=== PATIENT | male | born 1940 | race Caucasian/White ===

== ENCOUNTER 2020-07-02 18:34 | Inpatient (IN) | payer MEDICARE, OTHER ==
[~2020-07-02] VITALS: Ht 177.8 cm; Wt 83.2 kg
[2020-07-02 21:57] LABS: HEMOGLOBIN 14.3 gm/dl (14.0-17.5); RED BLOOD COUNT 4.67 M/UL (4.20-5.50); WHITE BLOOD COUNT 9.8 K/UL (4.5-11.0)
[2020-07-04] MEDS ORDERED: IPRATROPIUM BRO15 ML (09:25)
[2020-07-04] MEDS ORDERED: RESTORIL 30 MG30 MG PO (09:25)
[2020-07-04] MEDS ORDERED: NITROSTAT0.4 MG SL (09:25)
[2020-07-04] MEDS ORDERED: COREG12.5 MG PO (09:26)
[2020-07-04] MEDS ORDERED: RANEXA500 MG PO (09:26)
[2020-07-04] MEDS ORDERED: LINZESS72 MCG PO (09:26)
[2020-07-04] MEDS ORDERED: HYDRALAZINE HCL50 MG PO (09:27)
[2020-07-04] MEDS ORDERED: ALLEGRA ALLERG180 MG PO (09:27)
[2020-07-04] MEDS ORDERED: DRISDOL1250 MCG PO (09:27)
[2020-07-04] MEDS ORDERED: ASPIRIN EC81 MG PO (09:28)
[2020-07-04] MEDS ORDERED: OMEPRAZOLE20 MG PO (09:28)
[2020-07-04] MEDS ORDERED: SYNTHROID88 MCG PO (09:28)
[2020-07-04] MEDS ORDERED: ISOSORBIDE MON120 MG PO (09:28)
[2020-07-04] MEDS ORDERED: LIPITOR40 MG PO (09:29)
[2020-07-04] MEDS ORDERED: LEVEMIR FL100 UNIT/1 SC (09:29)
[2020-07-05 04:27] LABS: HEMOGLOBIN 14.2 gm/dl (14.0-17.5); RED BLOOD COUNT 4.68 M/UL (4.20-5.50); WHITE BLOOD COUNT 8.5 K/UL (4.5-11.0)
[2020-07-06 02:58] LABS: HEMOGLOBIN 12.4 gm/dl (14.0-17.5); WHITE BLOOD COUNT 7.1 K/UL (4.5-11.0)
[2020-07-06 03:08] LABS: RED BLOOD COUNT 4.12 M/UL (4.20-5.50)
[2020-07-07] MEDS ORDERED: ATORVASTATIN CA20 MG PO (10:48)
[2020-07-07] MEDS ORDERED: LEVEMIR FL100 UNIT/1 SC (10:48)
== END 2020-07-07 14:17 | disposition home or self-care (01) | DRG 280 ==
LOC: ER1 18:34 → CDU 07-03 01:05 → PROG CARE 07-05 07:57
PROVIDERS: Family Medicine; Hospitalist; Internal Medicine; ADMIT Internal Medicine
PROC: B24BZZZ Ultrasonography of Heart with Aorta (ICD-10-PCS; 2020-07-03)
PROC: B211YZZ Fluoroscopy of Multiple Coronary Arteries using Other Contrast (ICD-10-PCS; principal; 2020-07-05)
PROC: B218YZZ Fluoroscopy of Left Internal Mammary Bypass Graft using Other Contrast (ICD-10-PCS; 2020-07-05)
PROC: 4A033BC Measurement of Arterial Pressure, Coronary, Percutaneous Approach (ICD-10-PCS; 2020-07-05)
PROC: 4A023N7 Measurement of Cardiac Sampling and Pressure, Left Heart, Percutaneous Approach (ICD-10-PCS; 2020-07-05)
DX: T82.855A Stenosis of coronary artery stent, initial encounter (principal); I21.4 Non-ST elevation (NSTEMI) myocardial infarction; I50.21 Acute systolic (congestive) heart failure; N17.9 Acute kidney failure, unspecified; Z20.822 Contact with and (suspected) exposure to COVID-19; J90 Pleural effusion, not elsewhere classified; I13.0 Hypertensive heart and chronic kidney disease with heart failure and stage 1 through stage 4 chronic kidney disease, or unspecified chronic kidney disease; I25.10 Atherosclerotic heart disease of native coronary artery without angina pectoris; I44.7 Left bundle-branch block, unspecified; J44.9 Chronic obstructive pulmonary disease, unspecified; E11.22 Type 2 diabetes mellitus with diabetic chronic kidney disease; N18.9 Chronic kidney disease, unspecified; G47.33 Obstructive sleep apnea (adult) (pediatric); E03.9 Hypothyroidism, unspecified; R55 Syncope and collapse; M19.90 Unspecified osteoarthritis, unspecified site; Z88.0 Allergy status to penicillin; Z83.3 Family history of diabetes mellitus; Z82.49 Family history of ischemic heart disease and other diseases of the circulatory system; Z86.16 Personal history of COVID-19; Z95.5 Presence of coronary angioplasty implant and graft; Z79.82 Long term (current) use of aspirin; Z79.890 Hormone replacement therapy; Z95.1 Presence of aortocoronary bypass graft; Z79.4 Long term (current) use of insulin; Z79.899 Other long term (current) drug therapy
CPT/HCPCS: ECHO; 36415; 36600; 71045; 80048; 80053; 82550; 82553; 82803; 82962; 83735; 83874; 83880; 84484; 85025; 85027; 85730; 93005; 93306; 96374; 96375; 96376; 99152; 99153; 99285; C1769; J1644; J1940; J2250; J2405; J2550; J3010; J7030; J7040; Q9965; U0002

== ENCOUNTER 2020-12-13 13:42 | Emergency (ER) | payer MEDICARE, OTHER ==
[~2020-12-13 13:42] MED LIST: ALLEGRA ALLERG180 MG PO; ASPIRIN EC81 MG PO; ATORVASTATIN CA20 MG PO; COREG12.5 MG PO; DRISDOL1250 MCG PO; HYDRALAZINE HCL50 MG PO; IPRATROPIUM BRO15 ML; ISOSORBIDE MON120 MG PO; LEVEMIR FL100 UNIT/1 SC; LINZESS72 MCG PO; LIPITOR40 MG PO; NITROSTAT0.4 MG SL; OMEPRAZOLE20 MG PO; RANEXA500 MG PO; RESTORIL 30 MG30 MG PO; SYNTHROID88 MCG PO
[2020-12-13 13:53] LABS: RED BLOOD COUNT 4.48 M/UL (4.20-5.50); WHITE BLOOD COUNT 8.3 K/UL (4.5-11.0)
[2020-12-13 14:25] LABS: BUN/CREATININE RATIO 13 (0-10)
== END 2020-12-13 17:36 | disposition short-term general hospital (02) ==
LOC: ER1 13:42
PROVIDERS: Student in an Organized Health Care Education/Training Program
DX: S06.5X0A Traumatic subdural hemorrhage without loss of consciousness, initial encounter (principal); S06.6X0A Traumatic subarachnoid hemorrhage without loss of consciousness, initial encounter; S01.01XA Laceration without foreign body of scalp, initial encounter; R41.82 Altered mental status, unspecified; Z20.822 Contact with and (suspected) exposure to COVID-19; W19.XXXA Unspecified fall, initial encounter
CPT/HCPCS: 0240U; 36430; 70450; 71045; 72125; 72170; 80053; 80307; 81001; 83605; 85025; 85610; 85730; 86850; 86900; 86901; 93005; 96374; 99285; G0480; J1953; J7050; P9037